=== PATIENT | male | born 1990 | race Caucasian/White ===

== ENCOUNTER 2019-10-23 16:59 | Emergency (ER) | payer SELFPAY ==
[~2019-10-23] VITALS: Ht 172.7 cm; Wt 89.0 kg
[2019-10-23] MEDS ORDERED: IBUPROFEN 600MG TABLET PO ONE (19:30)
[2019-10-23 20:56] VITALS: BP 132/74
== END 2019-10-23 20:56 | disposition home or self-care (01) ==
LOC: ER 20:20
DX: S60.221A Contusion of right hand, initial encounter (principal); Z87.81 Personal history of (healed) traumatic fracture; W22.01XA Walked into wall, initial encounter; Y93.89 Activity, other specified; Y92.018 Other place in single-family (private) house as the place of occurrence of the external cause
CPT/HCPCS: 29125; 73130; 99283; A4565